=== PATIENT | female | born 1985 | race Caucasian/White ===

== ENCOUNTER 2020-01-04 02:19 | Emergency (ER) | payer OTHER ==
[~2020-01-04] VITALS: Ht 162.6 cm; Wt 71.0 kg
[2020-01-04 02:49] LABS: HEMOGLOBIN 7.4 gm/dL (12.0-15.0); MCHC 30.9 g/dL (28.0-37.0); MCV 64.5 fL (80.0-100.0); MPV 8.8 fl. (7.2-11.1); RBC 3.73 mil/uL (4.20-5.00); RDW-CV 19.6 % (10.5-14.5); WBC 3.9 thou/uL (4.0-11.0)
[2020-01-04 02:59] LABS: CALCIUM 8.3 mg/dL (8.5-10.1); CREATININE 0.9 mg/dL (0.6-1.3); POTASSIUM 2.9 mmol/L (3.5-5.1)
[2020-01-04 03:04] LABS: ALBUMIN 3.7 g/dL (3.4-5.0); TOTAL BILIRUBIN 0.8 mg/dL (<0.1-1.0); TOTAL PROTEIN 7.4 g/dL (6.4-8.2)
[2020-01-04 03:08] LABS: ALCOHOL < 10 mg/dL (<10)
[2020-01-04 03:17] LABS: ACETAMINOPHEN < 2 ug/mL (10-30)
[2020-01-04 03:18] LABS: SALICYLATE < 2.8 mg/dL (2.8-20.0)
[2020-01-04 03:54] VITALS: BP 117/86
--- NOTE | 2020-01-04 12:56 | EKG ---
[place] [address] ELECTROCARDIOGRAM REPORT Name: TERRIE RESENDEZ Room: [facility]#: [id number] Admission: 01/04/20 Attend Phys: Discharge: 01/04/20 Date of : 81 Date of Service: 01/04/20 0236 Report #: [id number] THIS REPORT FOR: //name// [facility] ED Test Date: 2020-01-04 Test Time: 02:36:46 Pat Name: TERRIE RESENDEZ Department: Room: Gender: F Outpatient Services Director: : 1985 Requested By: Bess Brown Order Number: [id number] MD: Anthony Martinez Measurements Intervals [place] Rate: 112 P: 68 FL: 141 QRS: 9 QRSD: 85 T: 28 QT: 352 QTc: 481 Interpretive Statements Sinus tachycardia Baseline wander in lead(s) I,II,aVR,V2 No previous ECG available for comparison Electronically Signed On 01-04-2020 12:54:59 CDT by Anthony Martinez [email or web address] <ELECTRONICALLY SIGNED> By: Anthony Martinez MD, FACC 01/04/20 1254 0236 0236 Anthony Martinez MD, FAC /EPI
== END 2020-01-04 03:54 | disposition home or self-care (01) ==
LOC: M.ERS 02:19
PROVIDERS: Personal Emergency Response Attendant
DX: T40.1X1A Poisoning by heroin, accidental (unintentional), initial encounter (principal); T76.21XA Adult sexual abuse, suspected, initial encounter; Z98.890 Other specified postprocedural states; Z90.49 Acquired absence of other specified parts of digestive tract; Y92.89 Other specified places as the place of occurrence of the external cause

== ENCOUNTER 2020-06-16 15:23 | Emergency (ER) | payer MEDICAID ==
[~2020-06-16] VITALS: Ht 162.6 cm; Wt 74.8 kg
[2020-06-16] MEDS ORDERED: PROZAC20 MG PO (15:31)
[2020-06-16] MEDS ORDERED: VISTARIL50 MG PO (15:31)
[2020-06-16 16:19] LABS: ABSOLUTE MONOCYTES 0.3 thou/uL (0.0-1.2); ABSOLUTE NEUTROPHILS 4.3 thou/uL (1.6-8.1); BASOPHILS 0.7 %; EOSINOPHILS 0.1 %; HEMATOCRIT 29.9 % (37.0-47.0); HEMOGLOBIN 9.4 gm/dL (12.0-15.0); MCH 22.5 pg (26.0-34.0); MCHC 31.5 g/dL (28.0-37.0); MCV 71.3 fL (80.0-100.0); MONOCYTES 5.5 %; MPV 7.6 fl. (7.2-11.1); NUCLEATED RBCS 0 /100WBC; PLATELET COUNT* 213 thou/uL (150-400); POLYS 75.7 %; RBC 4.19 mil/uL (4.20-5.00); RDW-CV 21.1 % (10.5-14.5); WBC 5.7 thou/uL (4.0-11.0)
[2020-06-16 16:28] LABS: CALCIUM 8.3 mg/dL (8.5-10.1); CREATININE 0.7 mg/dL (0.6-1.3); POTASSIUM 3.6 mmol/L (3.5-5.1)
[2020-06-16 16:33] LABS: ALBUMIN 3.9 g/dL (3.4-5.0); TOTAL BILIRUBIN 0.7 mg/dL (<0.1-1.0)
[2020-06-16 17:20] VITALS: BP 140/70
[2020-06-16 17:38] LABS: ANISOCYTOSIS 2+; HYPOCHROMASIA 1+; MICROCYTES 2+; OVALOCYTES 1+; PLATELET ESTIMATE ADEQUATE
--- NOTE | 2020-06-17 17:53 | EKG ---
[place] [address] ELECTROCARDIOGRAM REPORT Name: TERRIE RESENDEZ Room: [facility]#: [id number] Admission: 06/16/20 Attend Phys: Discharge: 06/16/20 Date of : 81 Date of Service: 06/16/20 1542 Report #: [id number] THIS REPORT FOR: //name// [facility] ED Test Date: 2020-06-16 Test Time: 15:42:02 Pat Name: TERRIE RESENDEZ Department: Room: Gender: F Critical Care Physician: JOSE A : 1985 Requested By: Rio Marin Order Number: [id number] MD: Anthony Martinez Measurements Intervals [place] Rate: 96 P: 46 CO: 144 QRS: 7 QRSD: 85 T: 41 QT: 409 QTc: 517 Interpretive Statements Sinus rhythm Prolonged QT interval Baseline wander in lead(s) II,III,aVF Compared to ECG 01/04/2020 02:36:46 Prolonged QT interval now present Sinus tachycardia no longer present Electronically Signed On 06-17-2020 17:53:12 CDT by Anthony Martinez [email or web address] <ELECTRONICALLY SIGNED> By: Anthony Martinez MD, FACC 06/17/20 1753 1542 1542 Anthony Martinez MD, FACC /EPI
== END 2020-06-16 17:20 ==
LOC: M.ERS 15:23
PROVIDERS: Emergency Medicine Emergency Medical Services
DX: F41.9 Anxiety disorder, unspecified (principal); Z98.890 Other specified postprocedural states; Z90.49 Acquired absence of other specified parts of digestive tract

== ENCOUNTER 2020-07-22 20:02 | Emergency (ER) | payer OTHER, MEDICAID ==
[~2020-07-22] VITALS: Ht 162.6 cm; Wt 77.1 kg
[~2020-07-22 20:02] MED LIST: PROZAC20 MG PO; VISTARIL50 MG PO
[2020-07-22] MEDS ORDERED: NAPROSYN500 MG PO (21:02)
[2020-07-22] MEDS ORDERED: NORCO 5-325 TA1 EAC2 PO (21:02)
[2020-07-22 21:16] VITALS: BP 142/101
== END 2020-07-22 21:16 | disposition home or self-care (01) ==
LOC: M.ERS 20:02
DX: S93.521A Sprain of metatarsophalangeal joint of right great toe, initial encounter (principal); M76.891 Other specified enthesopathies of right lower limb, excluding foot; Z98.890 Other specified postprocedural states; Z90.49 Acquired absence of other specified parts of digestive tract; W01.0XXA Fall on same level from slipping, tripping and stumbling without subsequent striking against object, initial encounter; Y93.89 Activity, other specified; Y92.89 Other specified places as the place of occurrence of the external cause; Y99.8 Other external cause status

== ENCOUNTER 2020-08-04 13:52 | Emergency (ER) | payer OTHER, MEDICAID ==
[~2020-08-04] VITALS: Ht 162.6 cm; Wt 77.1 kg
[~2020-08-04 13:52] MED LIST changes: +NAPROSYN500 MG PO; +NORCO 5-325 TA1 EAC2 PO
[2020-08-04] MEDS ORDERED: APAP W/CODEINE1 TA2 PO (14:58)
[2020-08-04 15:08] VITALS: BP 135/87
== END 2020-08-04 15:09 | disposition home or self-care (01) ==
LOC: M.ERS 13:52
DX: S90.112A Contusion of left great toe without damage to nail, initial encounter (principal); Z98.890 Other specified postprocedural states; Z90.49 Acquired absence of other specified parts of digestive tract; W10.8XXA Fall (on) (from) other stairs and steps, initial encounter; Y93.89 Activity, other specified; Y92.89 Other specified places as the place of occurrence of the external cause; Y99.8 Other external cause status